=== PATIENT | male | born 1965 | race African-American/Black ===

== ENCOUNTER 2019-12-13 10:10 | Emergency (ER) | payer OTHER, SELFPAY ==
[2019-12-13 10:24] VITALS: BP 133/86; PULSE 76; RESP 16; TEMP 36.2; O2SAT 99
--- NOTE | 2019-12-13 10:43 | ED.URI ---
HPI - URI/Sore Throat General Chief Complaint: Upper Respiratory Infection Stated Complaint: Congestion Time Seen by Provider: 12/13/19 10:44 Source: patient Mode of arrival: ambulatory Limitations: no limitations History of Present Illness HPI Narrative: Dean Siddiqui is a 53 yo male with a PMH of high cholesterol who comes to express care with complaints of cold symptoms that have been going on for almost a week. States he has cough sinus congestion headache, has taken OTC Dimetapp without relief, sent here by his job at [employer] for evaluation Related Data Home Medications Medication Instructions Recorded Confirmed atorvastatin 20 mg HS 12/13/19 12/13/19 Allergies Allergy/AdvReac Type Severity Reaction Status Date / Time No Known Allergies Allergy Unverified 07/28/18 19:14 Review of Systems Review of Systems: Narrative: CONSTITUTIONAL: Denies fever, chills, sweats. EYES: Denies visual changes, redness, discharge. ENT: has rhinorrhea, congestion, sore throat, no otalgia. CARDIOVASCULAR: Denies chest pain, palpitations, edema. RESPIRATORY: Denies dyspnea, wheezing, has dry cough GASTROINTESTINAL: Denies abdominal pain, nausea, vomiting, diarrhea. GENITOURINARY: Denies dysuria, hematuria, abnormal discharge SKIN: Denies rash or itching. NEUROLOGIC: Denies numbness, or focal weakness. PSYCHIATRIC: Denies anxiety or depression. [facility] Family History Family History Other High cholesterol Social History Social History (Updated 12/13/19 @ 10:46 by Sri Cavanaugh CNP) Smoking status: Never smoker Living arrangements: with family Comments At time of signature, I agree with nursing past medical, surgical, social and family history. There is no relevant family history pertinent to the presenting complaint. Exam Narrative: Exam Narrative: GENERAL: This is a well-nourished, well-developed patient, in mild distress. HEAD: normocephalic, atraumatic. EYES: Sclera clear/white. Vision is grossly intact. EARS: External ears normal, auditory canals reddened,without drainage, TMs normal without perforation. Hearing grossly intact. NOSE: External nose normal with n nasal discharge, nares without redness, with rhinorrhea. THROAT: Mucous membranes moist, posterior pharynx erythema NECK: Neck supple, non-tender without lymphadenopathy, CARDIOVASCULAR: Regular rate and rhythm without murmurs, gallops, or rubs. RESPIRATORY: Coarse to auscultation. Breath sounds equal bilaterally. No wheezes, rales, or rhonchi. GASTROINTESTINAL: Abdomen soft, non-tender, SKIN: warm, intact with no suspicious lesions or rash, good texture and turgor. NEURO: awake, alert, and oriented to person, place and time. There were no obvious focal neurologic abnormalities. Steady gait EXTREMITIES: Normal range of motion. No edema. BACK: Nontender without deformity or crepitance. Course Course Emergency Course: Started on Mucinex prednisone and cough syrup-May use ibuprofen for myalgia Follow-up with primary care physician Vital Signs Vital signs: Vital Signs Temperature 97.1 F L 12/13/19 10:24 Pulse Rate 76 12/13/19 10:24 Respiratory Rate 16 12/13/19 10:24 Blood Pressure 133/86 12/13/19 10:24 Pulse Oximetry 99 12/13/19 10:24 Temperature 97.1 F L 12/13/19 10:24 Pulse Rate 76 12/13/19 10:24 Respiratory Rate 16 12/13/19 10:24 Blood Pressure 133/86 12/13/19 10:24 Pulse Oximetry 99 12/13/19 10:24 MDM - URI/Sore Throat Differential Diagnosis Differential diagnosis: Likely upper respiratory infection, sinusitis, bronchitis and pharyngitis Discharge Plan Discharge Clinical Impression: Upper respiratory infection Qualifiers: URI type: unspecified viral URI Qualified Code(s): J06.9 - Acute upper respiratory infection, unspecified Patient Disposition: Home, Self-Care Condition: Stable Instructions: Upper Respiratory Infection (D
== END 2019-12-13 10:54 | disposition home or self-care (01) ==
PROVIDERS: Emergency Provider Nurse Practitioner
DX: J06.9 Acute upper respiratory infection, unspecified (principal); E78.00 Pure hypercholesterolemia, unspecified
CPT/HCPCS: 99213; G0463

== ENCOUNTER 2020-01-05 12:48 | Emergency (ER) | payer OTHER, SELFPAY ==
[2020-01-05 13:11] VITALS: BP 134/88; PULSE 91; RESP 16; TEMP 35.8; O2SAT 99
--- NOTE | 2020-01-05 13:46 | ED.LOWEXIN ---
HPI - Extremity Injury (Lower) General Chief Complaint: Extremity Injury, Lower Stated Complaint: L knee swollen/strain Time Seen by Provider: 01/05/20 13:39 Source: patient and RN notes reviewed Mode of arrival: ambulatory Limitations: no limitations History of Present Illness HPI Narrative: Patient presents today complaining of a left knee pain and swelling x1 week that has been worsening since onset. States he is unable to fully extend the leg due to swelling. He had been doing heavy lifting at work and did feel a pop initially prior to the swelling starting. Denies numbness or tingling in the leg or foot. Reports 1 similar episode in the past, and patient was told this was due to osteoarthritis. He has been taking Tylenol arthritis without much relief. He is also been applying ice and wrapping the knee. MD complaint: knee injury Related Data Home Medications Medication Instructions Recorded Confirmed atorvastatin 20 mg HS 12/13/19 12/13/19 Allergies Allergy/AdvReac Type Severity Reaction Status Date / Time No Known Allergies Allergy Unverified 07/28/18 19:14 Review of Systems Review of Systems: Narrative: CONSTITUTIONAL: Denies body aches, fever, chills, or sweats. EYES: Denies visual changes, redness, or discharge. ENT: Denies rhinorrhea, congestion, sore throat, or otalgia. CARDIOVASCULAR: Denies chest pain, palpitations, or edema. RESPIRATORY: Denies cough or dyspnea. GASTROINTESTINAL: Denies abdominal pain, nausea, vomiting, or diarrhea. GENITOURINARY: Denies dysuria or hematuria. SKIN: Denies rash, itching, or wounds. MUSCULOSKELETAL: Denies back pain, or myalgia.+ Left knee pain and swelling NEUROLOGIC: Denies headache, numbness, tingling, or weakness. PSYCH: Denies depression or anxiety. PMFSH Social History Social History (Updated 12/13/19 @ 10:46 by Sri Cavanaugh CNP) Smoking status: Never smoker Comments At time of signature, I have reviewed and agree with nursing past medical, surgical, social and family history unless otherwise noted. Please see nursing chart for further information. There is no relevant family history pertinent to the presenting complaint Exam Narrative: Exam Narrative: GENERAL: Well-appearing, well-nourished, and in no acute distress. HEAD: Normocephalic, atraumatic. EYES: EOMI. No redness or drainage. Conjunctivae normal. ENT: Mucous membranes pink and moist. NECK: Normal AROM. CHEST: No respiratory distress. EXTREMITIES: Left knee: Obvious large effusion to the left lateral and medial joint line. Tender to palpation. Patient is posteriorly tender as well. No erythema, induration, or other signs of cellulitis noted. Distal sensation intact. Capillary refill normal. Pedal pulse normal. Decreased AROM due to swelling. SKIN: Warm, dry, no rash. NEURO: No focal deficits. Alert and oriented x3. Gait steady. PSYCH: Normal affect. No signs of depression or anxiety. Course Vital Signs Vital signs: Vital Signs Temperature 96.4 F L 01/05/20 13:11 Pulse Rate 91 01/05/20 13:11 Respiratory Rate 16 01/05/20 13:11 Blood Pressure 134/88 01/05/20 13:11 Pulse Oximetry 99 01/05/20 13:11 Temperature 96.4 F L 01/05/20 13:11 Pulse Rate 91 01/05/20 13:11 Respiratory Rate 16 01/05/20 13:11 Blood Pressure 134/88 01/05/20 13:11 Pulse Oximetry 99 01/05/20 13:11 Reviewed. Pt has been instructed to follow up with his PCP regarding his elevated blood pressure today. MDM - Extremity Injury (Lower) Differential Diagnosis Differential diagnosis: Likely other (Knee sprain, knee effusion, Fabian's cyst, osteoarthritis) Critical Care Time Critical Care Time Critical Care Time: No Discharge Plan Discharge Clinical Impression: Effusion of knee joint, left Patient Disposition: Home, Self-Care Condition: Stable Instructions: Swollen Knee Joint (ED) Additional Instructions: Please continue to wrap and elevate the knee. Teodoro
== END 2020-01-05 13:58 | disposition home or self-care (01) ==
PROVIDERS: Emergency Provider Nurse Practitioner; PCP Internal Medicine
DX: M25.462 Effusion, left knee (principal); E78.00 Pure hypercholesterolemia, unspecified; M19.90 Unspecified osteoarthritis, unspecified site
CPT/HCPCS: 99213; G0463

== ENCOUNTER 2021-07-20 17:12 | Emergency (ER) | payer OTHER, SELFPAY ==
[2021-07-20 17:44] VITALS: BP 144/87; PULSE 75; RESP 16; TEMP 36.3; O2SAT 99
--- NOTE | 2021-07-20 17:54 | ED.GENADULT ---
HPI - General Adult General Chief complaint: Abdominal Pain Stated complaint: abd pain Source: patient Mode of arrival: ambulatory Limitations: no limitations History of Present Illness HPI narrative: Patient is a 55-year-old -Martiniquais male who presents to the urgent care via POV for evaluation of right upper quad abdominal pain that has been present for 2 days. Patient reports pain to be 4-5 out of 10 on the pain scale. Tylenol provides minimal relief. Nothing worsens symptoms. Patient denies abdominal history. Related Data Home Medications Medication Instructions Recorded Confirmed atorvastatin 20 mg HS 12/13/19 12/13/19 Allergies Allergy/AdvReac Type Severity Reaction Status Date / Time No Known Allergies Allergy Unverified 07/20/21 17:47 Review of Systems Review of Systems: Denies past abdominal medical history. Pertinent negatives fever, chills, sweats, malaise, poor p.o. intake, change in appetite, recent weight loss, lymphadenopathy, headache, sore throat, dizziness, LOC, urinary sxs, back/flank pain, extremity paresthesias, blood in stool, nausea, vomiting, diarrhea, constipation, belching, bloating, dry mouth, heartburn, jaundice, vomiting blood, and testicular pain. PMFSH Past Medical History Medical History (Updated 07/20/21 @ 18:03 by ZAKI Kingston, ) High cholesterol Family History Family History Other High cholesterol Social History Social History Smoking status: Never smoker Comments I have reviewed and agree with the patient's past medical, surgical, social, and family hx as documented by the RN. There is no relevant family history pertinent to the presenting complaint. Exam Narrative: GENERAL: Well-appearing, well-nourished, and in no acute distress. HEAD: Normocephalic, atraumatic. No sinus tenderness or facial swelling appreciated. EYES: PERRLA and EOMI. No evidence of erythema, swelling, or drainage. ENT: Mucous membranes moist and pink. Uvula is midline without erythema and swelling. No evidence of petechial rash, cobblestoning, lesions, ulcers, erythema, swelling, exudates, peritonsillar abscess, tenting, or drooling. Breath odor and voice normal. NECK: Supple. No Lymphadenopathy or nuchal rigidity appreciated. CHEST: Bilateral lung clements are clear to auscultation. No respiratory distress. No evidence of cough or pleuritic cp upon examination. HEART: Regular rate and rhythm. No murmur, gallop, or rub heard. ABDOMEN: Right upper abdominal pain palpated on examination. Soft, nondistended, normal active bowel sounds in all quadrants. No guarding. No rebound tenderness. No pulsatile or palpable abdominal mass(es). No CVAT EXTREMITIES: Normal range of motion. No edema. SKIN: Warm, dry, no rash. Excellent skin turgor. NEURO: No focal deficits. Alert and oriented x3. Course Course Emergency Course: The patient/guardian displays adequate decision making capability and despite a detailed discussion of alternatives, benefits, risks, and consequences refuses EMS transport to ER. Will transport via POV. Vital Signs Vital signs: Vital Signs Temperature 97.4 F L 07/20/21 17:44 Pulse Rate 75 07/20/21 17:44 Respiratory Rate 16 07/20/21 17:44 Blood Pressure 144/87 H 07/20/21 17:44 Pulse Oximetry 99 07/20/21 17:44 Temperature 97.4 F L 07/20/21 17:44 Pulse Rate 75 07/20/21 17:44 Respiratory Rate 16 07/20/21 17:44 Blood Pressure 144/87 H 07/20/21 17:44 Pulse Oximetry 99 07/20/21 17:44 Due to an elevated blood pressure, I had a detailed discussion with the patient and/or guardian regarding the need for follow-up with their primary care provider within the next 3-4 days. Patient verbalized understanding and agreed. Transfer Transfered to: [place] Transfer rationale: Higher level care?rule out acute abdomen Accepting physician:
== END 2021-07-20 18:02 | disposition short-term general hospital (02) ==
PROVIDERS: Emergency Provider Nurse Practitioner Family
DX: R10.11 Right upper quadrant pain (principal); E78.00 Pure hypercholesterolemia, unspecified
CPT/HCPCS: 99212; G0463

== ENCOUNTER 2021-07-20 18:09 | Emergency (ER) | payer OTHER, SELFPAY ==
--- NOTE | ~2021-07-20 | CT_ITS ---
EXAMINATION: CT abdomen pelvis w con INDICATION: Right-sided abdominal pain TECHNIQUE: Computed tomographic images of the abdomen and pelvis were obtained after the administrati on of 100 cc of Omnipaque 350 intravenous contrast. The dose-length product (DLP) was 1429.49 mGy-cm. Automated exposure control and iterative reconstruction technique were employed. COMPARISON: None available FINDINGS: Minimal dependent atelectasis is present in the lung bases. The heart size is normal. The l iver, spleen, pancreas, gallbladder, and adrenal glands are normal. There is a [address] one of the right kidney lower pole. The left kidney is unremarkable. There is no hydronephrosis or hy droureter. No pathologically enlarged abdominal or pelvic lymph nodes are identified. There is no geovany e intraperitoneal gas or evidence of bowel obstruction. The appendix is normal. A moderate volume of colonic stool is present. There is a fat-containing umbilical hernia. There is moderate lumbar spondy losis at L3-4. IMPRESSION: 1. No CT correlate for the patient's symptoms. 2. Nonobstructing right nephrolithiasis. Reviewed, dictated and finalized at location A.
[2021-07-20 18:11] VITALS: BP 155/95; PULSE 82; RESP 18; TEMP 36.7; O2SAT 98
[2021-07-20 20:43] VITALS: BP 142/94; PULSE 65; RESP 15; O2SAT 98
--- NOTE | 2021-07-20 20:48 | ED.ABDPAIN ---
HPI - Abdominal Pain General Chief Complaint: Abdominal Pain Stated Complaint: ABD PAIN Time Seen by Provider: 07/20/21 20:46 Source: patient and RN notes reviewed Mode of arrival: ambulatory Limitations: no limitations History of Present Illness HPI narrative: Patient is 55 years old -[place] male presents with right upper quadrant sharp stabbing pain started 3 days ago, worse with movement, better remaining still. Patient denies any fever, chills, nausea, vomiting, diarrhea, constipation, urinary symptoms. 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 Related Data Home Medications Medication Instructions Recorded Confirmed atorvastatin 20 mg HS 12/13/19 12/13/19 Allergies Allergy/AdvReac Type Severity Reaction Status Date / Time No Known Allergies Allergy Unverified 07/20/21 17:47 Review of Systems Review of Systems: CONSTITUTIONAL: Denies fever, chills, or sweats. EYES: Denies visual changes, redness, or discharge. ENT: Denies rhinorrhea, congestion, sore throat, or otalgia. CARDIOVASCULAR: Denies chest pain, palpitations, or edema. RESPIRATORY: Denies cough or dyspnea. GASTROINTESTINAL: Denies abdominal pain, nausea, vomiting, or diarrhea. GENITOURINARY: Denies dysuria or hematuria. SKIN: Denies rash or itching. MUSCULOSKELETAL: Denies back pain, joint pain, or myalgia. NEUROLOGIC: Denies headache, numbness, or weakness. PSYCHIATRIC: Denies anxiety or depression. PMFSH Past Medical History Medical History High cholesterol Family History Family History Other High cholesterol Social History Social History Smoking status: Never smoker Exam Narrative: General appearance: Well-developed, well-nourished Skin: Normal color Head: Normocephalic, nontraumatic Eyes: Clear conjunctiva ENT: Oropharynx normal, ears normal, nose normal Neck: Supple, nontender Chest and respiratory: Airway patent, no respiratory distress, no accessory muscle use Heart: Regular rate/rhythm Abdomen: Soft, mild to moderate tenderness right upper quadrant, no organomegaly, quiet bowel sounds Vascular: Normal peripheral pulses, normal capillary refill. Musculoskeletal: Normal range of motion, nontender back Neurologic: Alert and oriented ?3, [employer] is normal as tested, no gross motor deficit Course Course Emergency Course: Stable Vital Signs Vital signs: Vital Signs Temperature 36.7 C 07/20/21 18:11 Pulse Rate 82 07/20/21 18:11 Respiratory Rate 18 07/20/21 18:11 Blood Pressure 155/95 H 07/20/21 18:11 Pulse Oximetry 98 07/20/21 18:11 Temperature 36.7 C 07/20/21 18:11 Pulse Rate 62 07/20/21 22:26 Respiratory Rate 15 07/20/21 22:26 Blood Pressure 148/95 H 07/20/21 22:26 Pulse Oximetry 97 07/20/21 22:26 MDM - Abdominal Pain MDM Narrative Medical decision making narrative: Right upper quadrant pain Differential diagnosis as below. Labs, CT abdomen pelvis with IV contrast, IV fluid, ordered Differential Diagnosis Differential diagnosis: Likely abdominal pain, constipation and other (Abdominal wall strain/sprain, cholecystitis) Lab Data Result diagrams: 07/20/21 20:49 07/20/21 20:49 Labs: Lab Results 07/20/21 07/20/21 07/20/21 Range/Units 20:49 20:49 22:24 WBC 5.2 (4.5-10.0) K/mm3 RBC 4.68 (4.6-6.20) M/mm3 Hgb 12.9 L (14.0-18.0) g/dL Hct 39.0 L (42.0-52.0) % MCV 83.3 (80-100) fl MCH 27.6 (26-34) p
[2021-07-20 20:57] LABS: Basophils Absolute Auto 0.1 K/mm3 (0.0-0.1); Eosinophils Absolute Auto 0.2 K/mm3 (0-0.3); Eosinophils Percent Auto 3.8 % (0-4.4); Hemoglobin 12.9 g/dL (14.0-18.0); Immature Granulocyte Absolute 0.01 K/mm3 (0.00-0.031); Immature Granulocyte Percent A 0.2 % (0-0.5); Lymphocytes Absolute Auto 2.01 K/mm3 (0.9-3.2); Lymphocytes Percent Auto 38.6 % (18.3-44.2); Mean Corpuscular HGB Conc 33.1 g/dl (32-36); Mean Corpuscular Hemoglobin 27.6 pg (26-34); Mean Corpuscular Volume 83.3 fl (80-100); Monocytes Absolute Auto 0.7 K/mm3 (0.1-0.6); Monocytes Percent Auto 13.2 % (2.6-8.5); Neutrophils Absolute Auto 2.3 K/mm3 (1.3-6.7); Neutrophils Percent Auto 43.2 % (45.5-73.1); Platelet Count Result 347 k/mm3 (150-375); Red Blood Count 4.68 M/mm3 (4.6-6.20); Red Cell Distribution Width 13.4 % (11.5-14.5); White Blood Count 5.2 K/mm3 (4.5-10.0)
[2021-07-20 21:09] LABS: Alanine Aminotransferase 30 U/L (4-50); Albumin Level 4.6 g/dL (3.5-5.1); Alkaline Phosphatase 57 U/L (38-126); Anion Gap 8 mmol/L (8-16); Aspartate Amino Transferase 26 U/L (17-59); Bilirubin,Total 0.3 mg/dL (0.2-1.3); Blood Urea Nitrogen 16 mg/dL (9-20); Calcium 9.5 mg/dL (8.4-10.2); Carbon Dioxide 28 mmol/L (22-30); Chloride 102 mmol/L (98-107); Estimated CRCL calculation 140 ml/min; Estimated Glomerular Filt Rate > 60; Glucose 112 mg/dL (65-110); Lipase 208 U/L (23-300); Sodium 138 mmol/L (137-145)
[2021-07-20 22:26] VITALS: BP 148/95; PULSE 62; RESP 15; O2SAT 97
[2021-07-20 23:04] LABS: Add Urine Microscopic? YES; Appearance Urine Clear (Clear); Bilirubin Urine Negative (Negative); Blood Urine Negative (Negative); Color Urine Yellow (Yellow); Glucose Urine UA Negative (Negative); Ketones Urine Negative (Negative); Leukocyte Esterase Ur Negative LEU/UL (Negative); Nitrate Urine Negative (Negative); Protein Urine Negative (Negative); Specific Grav Ur 1.023 (1.001-1.035); WBC Urine 0-3 /hpf
[2021-07-20 23:13] VITALS: BP 150/92; PULSE 66; RESP 15; O2SAT 99
== END 2021-07-20 23:28 | disposition home or self-care (01) ==
PROVIDERS: Emergency Provider Emergency Medicine
DX: R10.11 Right upper quadrant pain (principal); E78.00 Pure hypercholesterolemia, unspecified; N20.0 Calculus of kidney
CPT/HCPCS: 36415; 74177; 80053; 81001; 83690; 85025; 99284; Q9967

== ENCOUNTER 2025-01-07 16:03 | Emergency (ER) | payer OTHER, SELFPAY ==
[2025-01-07 16:18] VITALS: BP 144/74; PULSE 69; RESP 19; TEMP 36.8; O2SAT 98
--- NOTE | 2025-01-07 19:36 | ED.BACK ---
HPI - Back Pain/Injury General Chief Complaint: Back Pain/Injury Stated Complaint: Right Side Body Pain Time Seen by Provider: 01/07/25 16:29 Source: patient and RN notes reviewed Mode of arrival: ambulatory Limitations: no limitations History of Present Illness HPI Narrative: Patient presents today complaining of right-sided low back pain radiating to the right hip x5 days. 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 Denies any specific single injury, but reports his pain has been worsening since onset due to repetitive nature of his job. Denies numbness or tingling in the legs or genitalia, denies loss of bowel or bladder control. He has tried some Tylenol with mild relief and currently rates his pain 03/31. Related Data Home Medications ?Medication ?Instructions ?Recorded ?Confirmed ?Last Taken ?Type atorvastatin 20 mg tablet mg 01/07/25 Unknown History fluticasone propionate 50 intranasal 01/07/25 Unknown History mcg/actuation nasal spray,suspension Allergies Allergy/AdvReac Type Severity Reaction Status Date / Time No Known Allergies Allergy Verified 01/07/25 16:09 Review of Systems Review of Systems: CONSTITUTIONAL: Denies body aches, fever, chills, or sweats. EYES: Denies visual changes, redness, or discharge. ENT: Denies rhinorrhea, congestion, sore throat, or otalgia. CARDIOVASCULAR: Denies chest pain, palpitations, or edema. RESPIRATORY: Denies cough or dyspnea. GASTROINTESTINAL: Denies abdominal pain, nausea, vomiting, or diarrhea. GENITOURINARY: Denies dysuria or hematuria. SKIN: Denies rash, itching, or wounds. MUSCULOSKELETAL: Denies joint pain, or myalgia.+ right low back pain NEUROLOGIC: Denies headache, numbness, tingling, or weakness. PSYCH: Denies depression or anxiety. [facility] Past Medical History Medical History High cholesterol Family History Family History Other High cholesterol Social History Social History Smoking status: Never smoker Living arrangements: with family Comments At time of signature, I have reviewed and agree with nursing past medical, surgical, social and family history unless otherwise noted. Please see nursing chart for further information. There is no relevant family history pertinent to the presenting complaint Exam Narrative: GENERAL: Well-appearing, well-nourished, and in mild pain distress. HEAD: Normocephalic, atraumatic. EYES: EOMI. No redness or drainage. Conjunctivae normal. ENT: Mucous membranes pink and moist. NECK: Normal AROM. CHEST: No respiratory distress. Clear to auscultation. HEART: Regular rate and rhythm. No murmur appreciated. ABDOMEN: Soft, nontender, nondistended, normal active bowel sounds. MUSCULOSKELETAL: No bony tenderness of the spine. Patient has some right lower lumbar paraspinal muscle tenderness that extends laterally and distally to the right lateral hip. Distal sensation intact bilaterally. Saddle sensation intact. Capillary refill normal. 5/5 strength in BLE. No tenderness to the right SI joint. SKIN: Warm, dry, no rash. Capillary refill normal. Normal skin turgor. NEURO: No focal deficits. Alert and oriented x3. Gait steady. PSYCH: Normal affect. No signs of depression or anxiety. Course Course Level of Care: Express Care Visit Vital Signs Vital signs: Vital Signs Temperature 98.2 F 01/07/25 16:18 Pulse Rate 69 01/07/25 16:18 Respiratory Rate 01/07/25 16:18 Blood Pressure 144/74 H 01/07/25 16:18 Pulse Oximetry 98 01/07/25 16:18 Oxygen Delivery Room Air 01/07/25 16:18 Temperature 98.2 F 01/07/25 16:18 Pulse Rate 69 01/07/25 16:18 Respiratory Rate 01/07/25 16:18 Blood Pressure 144/74 H 01/07/25 16:18 Pulse Oximetry 98 01/07/25 16:18 Oxygen Delivery Room Air 01/07/25 16:18 Reviewed MDM - Back Pain/Injury MDM Narrative Medical decision making narrative: Patient's symptoms are likely due to lower lumbar and right lateral hip strain. Recommend Flexeril and prednisone as well as adding an NSAID at home for discomfort. Patient will follow-up with his employer regarding workman's compensation. Anticipatory guidance and ED precautions given. Differential Diagnosis Differential diagnosis: Likely lumbar radiculopathy, sciatica and strain of lumbar region Critical Care Time Critical Care Time Critical Care Time: No Discharge Plan Discharge Clinical Impression: Low back strain Qualifiers: Encounter type: initial encounter Qualified Code(s): S39.012A - Strain of muscle, fascia and tendon of lower back, initial encounter Patient Disposition: Home, Self-Care Condition: Stable Instructions: Low Back Strain (ED) Additional Instructions: Please take the prescribed prednisone and Flexeril as directed. Do not drive within 8 hours of taking the Flexeril as it can make you drowsy. Start the prednisone tomorrow morning. In addition, taking anti-inflammatory at home such as Aleve or ibuprofen. With your PCP next week if symptoms are not improving. Follow-up with your employer regarding workman's compensation. Your blood pressure was elevated above 120/80 today at Urgent Care. This puts you above the threshold for follow up. Please schedule a followup visit with your personal physician as soon as possible, for further evaluation and treatment. Even blood pressure exceeding 120/80 may indicate pre-hypertension. Patient Language: Slovenian Prescriptions: New cyclobenzaprine 5 mg tablet 5 mg PO TID PRN (Reason: muscle spasm) Qty: 15 0RF prednisone 20 mg tablet 40 mg PO DAILY 5 Days Qty: 10 0RF No Action atorvastatin 20 mg tablet fluticasone propionate 50 mcg/actuation spray,suspension INTRANASAL Follow-up/Referrals: PHYSICIAN,LEGAL ADVISER [Primary Care Provider] - Time of Disposition: 16:45
== END 2025-01-07 16:50 | disposition home or self-care (01) ==
PROVIDERS: Emergency Provider Nurse Practitioner
DX: S39.012A Strain of muscle, fascia and tendon of lower back, initial encounter (principal); X58.XXXA Exposure to other specified factors, initial encounter; E78.00 Pure hypercholesterolemia, unspecified
CPT/HCPCS: 99213; G0463

== ENCOUNTER 2025-02-21 13:39 | Emergency (ER) | payer OTHER, SELFPAY ==
--- NOTE | 2025-02-21 13:42 | ED_ITS ---
HPI - Wound/Laceration General Chief Complaint: Wound/Laceration Stated Complaint: left index finger injury cut w/saw blade Time Seen by Provider: 02/21/25 13:42 Source: patient Mode of arrival: ambulatory Limitations: no limitations History of Present Illness HPI narrative: Dean is a 59-year-old male patient presenting to the clinic today with complaints of a left index finger injury. He reports he cut his finger with a saw blade. 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 Bleeding is controlled. Tetanus is up-to-date within the last 5 years. States this happened this morning the bleeding to stop. Related Data Home Medications ?Medication ?Instructions ?Recorded ?Confirmed ?Last Taken ?Type atorvastatin 20 mg tablet 20 mg PO QPM 01/07/25 02/21/25 Unknown History fluticasone propionate 50 1 spray intranasal Q12H 01/07/25 02/21/25 Unknown History mcg/actuation nasal spray,suspension clotrimazole-betamethasone 1 1 applic topical Q12H 02/21/25 02/21/25 Unknown History %-0.05 % topical cream Allergies Allergy/AdvReac Type Severity Reaction Status Date / Time No Known Allergies Allergy Verified 02/21/25 13:45 Review of Systems Review of Systems: Pertinent positives per HPI. Patient denies any fever, chills, rash, headache, visual changes, dizziness, cough, runny nose, sore throat, shortness of breath, chest pain, palpitations, nausea, vomiting, diarrhea, constipation, abdominal pain, or any urinary issues. PMFSH Past Medical History Medical History High cholesterol Family History Family History Other High cholesterol Social History Social History Smoking status: Never smoker Living arrangements: with family Comments At the time of my signature, I reviewed and agree with the nursing past medical, surgical, social, and family history. There is no relevant family history pertinent to the patient complaint. Exam Narrative: General: Well-developed, well nourished, in no apparent distress Head: Normocephalic, atraumatic. Cardio: Regular rate and rhythm, s1 and s2 normal, no murmur appreciated. Resp: Clear to auscultation bilaterally, no rhonchi, rales, wheezing or rubs. Integumentary: [place], warm, and dry, skin avulsion to the distal left lateral index finger. Surgicel was used to control bleeding and dressing was applied. Patient tolerated well Course Course Emergency Course: Portions of this record may have been created with voice recognition software. Level of Care: Express Care Visit Vital Signs Vital signs: Vital Signs Temperature 36.7 C 02/21/25 13:59 Pulse Rate 75 02/21/25 13:59 Respiratory Rate 20 02/21/25 13:59 Blood Pressure 149/77 H 02/21/25 13:59 Pulse Oximetry 99 02/21/25 13:59 Oxygen Delivery Room Air 02/21/25 13:59 Temperature 36.7 C 02/21/25 13:59 Pulse Rate 75 02/21/25 13:59 Respiratory Rate 20 02/21/25 13:59 Blood Pressure 149/77 H 02/21/25 13:59 Pulse Oximetry 99 02/21/25 13:59 Oxygen Delivery Room Air 02/21/25 13:59 Vital signs reviewed MDM - Wound/Laceration MDM Narrative Medical decision making narrative: At the time of visit patient is resting comfortably on the exam table. Patient appears to be nontoxic. Plan: Patient reports his tetanus is up-to-date. Bleeding is controlled using Surgicel in the clinic today. Dressing applied. Supportive measures were discussed with the patient and they voiced understanding discharge instructions and agrees to treatment plan. Return precautions reviewed Differential Diagnosis Differential diagnosis: Likely laceration, abscess, abrasion and avulsion of skin Discharge Plan Discharge Clinical Impression: Avulsion of skin of finger Patient Disposition: Home Condition: Stable Instructions: Antibiotic Form, Skin Avulsion (ED) Additional Instructions: Leave bandage on for 24 hours then may remove and apply band aide covering as needed. Keep sutures still in place-allow this to fall off on its own Keep wound clean and dry Wash daily with soap and water and pat dry Watch for signs and symptoms of infection- redness, streaking, swelling, purulent discharge, or increase in pain. Follow up with your PCP as needed Patient Language: Jordanian Prescriptions: No Action atorvastatin 20 mg tablet 20 mg PO QPM fluticasone propionate 50 mcg/actuation spray,suspension 1 spray INTRANASAL Q12H clotrimazole-betamethasone 1-0.05 % cream 1 applic TOPICAL Q12H Follow-up/Referrals: PHYSICIAN NOT ON STAFF,NONSTAFF [Primary Care Provider] - Stand Alone Forms: Work/School Release IP Time of Disposition: 14:12 Quality NIHSS Nursing Documentation ED NIHSS nursing documentation: reviewed/agree
[2025-02-21 13:59] VITALS: BP 149/77; PULSE 75; RESP 20; TEMP 36.7; O2SAT 99
[2025-02-21] MEDS: CELLULOSE OXIDIZED 2 x 14 INCH 1 PKT XX (14:18)
== END 2025-02-21 14:23 | disposition home or self-care (01) ==
PROVIDERS: Emergency Provider Nurse Practitioner Family
DX: S61.201A Unspecified open wound of left index finger without damage to nail, initial encounter (principal); W27.0XXA Contact with workbench tool, initial encounter; E78.00 Pure hypercholesterolemia, unspecified
CPT/HCPCS: 99212; G0463